=== PATIENT | male | born 1960 | race Caucasian/White ===

== ENCOUNTER → 2019-01-01 | Outpatient (CLI) | payer BC ==
[2016-06-25 11:36] VITALS: BP 148/61
[~2019-01-01] MED LIST: AMLO5TAB10 PO; ASCO100T4 PO; ASPI325T8 PO; ATORVASTATIN CA80 MG PO; CANA100T PO; FLAX10003 PO; INSU100C4 SQ; INSU100V13 SQ; ISOS60TA2 PO; LOSA100T14 PO; MAGN400C PO; METO25TA4 PO; OMEG1CAP6 PO; PRAS10TA9 PO; PRED-220 PO; VERA120T2 PO; VERA240C2 PO
--- NOTE | 2019-01-01 14:23 | RAD ---
Ultrasound-guided right thyroid biopsy, 01/01/2019: History: Enlarging nodule An outside study demonstrated a solid nodule in the lower pole of the right lobe of the gland which was thought to be enlarging. Biopsy was requested. Under local anesthesia, aseptic conditions and sonographic guidance a 25-gauge was passed into this nodule via an anteromedial approach. 4 separate aspirates were obtained from this nodule in this manner. The materials were sent to pathology for evaluation. Hemostasis was then obtained. The patient tolerated the procedure well and left the department in good condition. The pathology results are pending.
--- NOTE | 2019-01-07 17:08 | PATHOLOGY ---
Note [facility] Accession Number: [id number] TESTS RESULT FLAG UNITS REF RANGE LAB Clinician Provided Cytology Information No. of containers..01 Other (Miscellaneous) Source: RIGHT THYROID NODULE DIAGNOSIS: RIGHT THYROID NODULE NEGATIVE FOR MALIGNANT CELLS. B[place]ES[place] CATEGORY II. SPECIMEN CONSISTS OF BENIGN FOLLICULAR CELLS, COLLOID, AND BLOOD. THIS PATTERN IS WITH AN ADENOMATOID NODULE. THIS INTERPRETATION INCLUDES EVALUATION OF A CELL BLOCK. Pathologist ICD10: 02 E04.1 Signed out by: Star Verdin MD, Pathologist NPI- [id number] Performed by: Erinn Kramer, [employer] [facility] ([facility]) Gross description: 30ML, PINK, CLEAR /LCS FLAG LEGEND: L-Low Normal,H-High Normal,LL-Alert Low,HH-Alert High <-Panic Low,>-Panic High,A-Abnormal,AA-Critical Abnormal Performed at: [facility] [address] [place] [address] Kenneth Finnegan MD, [address] [facility] [place] [address] Star Verdin MD, Specimen Comment: A courtesy copy of this report has been sent to Specimen Comment: [phone], . Specimen Comment: Report sent to Specimen Comment: A duplicate report has been generated due to demographic updates. Performed at: 01 [facility] [address], [place], [place] [id number] MD Kenneth Finnegan MD Phone: [phone]
== END | disposition home or self-care (01) ==
LOC: US 12:46
PROVIDERS: ATTEND Family Medicine
DX: E04.1 Nontoxic single thyroid nodule (principal); E11.9 Type 2 diabetes mellitus without complications; I11.9 Hypertensive heart disease without heart failure; Z79.01 Long term (current) use of anticoagulants; Z86.73 Personal history of transient ischemic attack (TIA), and cerebral infarction without residual deficits; Z95.1 Presence of aortocoronary bypass graft; Z90.49 Acquired absence of other specified parts of digestive tract; Z98.890 Other specified postprocedural states; Z79.84 Long term (current) use of oral hypoglycemic drugs
CPT/HCPCS: 10005; 60300; 76942; 88173; 88305

== ENCOUNTER → 2021-10-25 | Outpatient (CLI) | payer OTHER ==
[2016-06-25 11:36] VITALS: BP 148/61
[~2021-10-25] MED LIST changes: +AMLO-186 PO; -AMLO5TAB10 PO; -ISOS60TA2 PO; +ISOS60TA55 PO
--- NOTE | 2021-10-25 14:40 | RAD ---
CT HEAD/BRAIN WO History: Posttraumatic headache. Comparison: None. Technique: Noncontrast CT imaging was performed of the head. Findings: No intracranial hemorrhage. No mass effect. No hydrocephalus. No evidence of acute territorial infar ction. Imaged orbits are unremarkable. Imaged paranasal sinuses and mastoid air cells are clear. The scalp a nd calvarium are unremarkable. Impression: 1. No acute intracranial abnormality. ----- Exposure: One or more of the following individualized dose reduction techniques were utilized for thi s examination: 1. Automated exposure control 2. Adjustment of the mA and/or kV according to patient size 3. Use of iterative reconstruction technique. Electronically signed by: Karthik Bourne MD (10/25/2021 2:37 PM) [facility]
== END ==
LOC: CT 13:49
PROVIDERS: ATTEND Preventive Medicine Occupational Medicine
DX: G44.319 Acute post-traumatic headache, not intractable (principal)
CPT/HCPCS: 70450